=== PATIENT | female | born 1980 | race Two or more races ===

== ENCOUNTER 2017-02-05 05:03 | Inpatient (IN) | payer OTHER ==
[~2017-02-05] VITALS: Ht 185.4 cm; Wt 109.0 kg
[~2017-02-05 05:03] MED LIST: PREN1TAB74
[2017-02-05 06:27] VITALS: BMI 31.7
[2017-02-05 06:28] VITALS: Ht 185.4 cm; Wt 109.0 kg
[2017-02-05 06:30] VITALS: BP 130/77; PULSE 96; RESP 18
[2017-02-05] MEDS ORDERED: OXYTOCIN 30 UNITS/LR 500 ML IV PRN ×2 (07:00→13:00)
[2017-02-05] MEDS ORDERED: METHYLERGONOVINE 0.2 MG INJ IM PRN ×2 (07:00→13:00)
[2017-02-05] MEDS ORDERED: OXYTOCIN 30 UNITS/LR 500 ML IV SCH (07:00)
[2017-02-05] MEDS ORDERED: CEFAZOLIN 2 GM/50 ML (PMX) 50 ML IV SCH (07:00)
[2017-02-05] MEDS ORDERED: CARBOPROST 250 MCG INJ IM PRN ×2 (07:00→13:00)
[2017-02-05] MEDS ORDERED: MISOPROSTOL 200 MCG TAB PR PRN ×2 (07:00→13:00)
[2017-02-05 07:20] LABS: BASOPHILS % 0.4 % (0.0-2.0); EOSINOPHILS % 0.2 % (0.0-7.0); HEMATOCRIT 36.9 % (37.0-47.0); LYMPHOCYTES # 1.7 10^3/ul (0.8-2.9); LYMPHOCYTES % 19.8 % (15.0-51.0); MEAN CORPUSCULAR HEMOGLOBIN 31.3 pg (29.0-33.0); MEAN CORPUSCULAR HGB CONC 35.2 g/dl (32.0-37.0); MEAN CORPUSCULAR VOLUME 88.7 fl (82.0-101.0); MEAN PLATELET VOLUME 11.6 fl (7.4-10.4); MONOCYTE # 0.8 10^3/ul (0.3-0.9); MONOCYTES % 9.5 % (0.0-11.0); NEUTROPHILS % 68.7 % (39.0-77.0); PLATELET COUNT 180 10^3/UL (140-415); RED BLOOD COUNT 4.16 10^6/ul (4.20-5.40); RED CELL DISTRIBUTION WIDTH 14.2 % (11.5-14.5); WHITE BLOOD COUNT 8.5 10^3/ul (4.8-10.8)
[2017-02-05 07:35] LABS: INR 0.87; PARTIAL THROMBOPLASTIN TIME 27.5 Sec (25.0-35.0); PROTIME 11.8 Sec (12.2-14.2); PT RATIO 0.9
[2017-02-05] MEDS: LACTATED RINGER'S 1,000 ML IV SCH ×2 (07:41→08:33)
[2017-02-05] MEDS ORDERED: PHENYLephrine (100 MCG/ML) 5ML SYG ONE (08:52)
[2017-02-05] MEDS ORDERED: EPHEDrine SULFATE 50 MG/5 ML SYG ONE (08:52)
[2017-02-05] MEDS ORDERED: FENTAnyl 50 MCG/ML VIAL ONE (08:52)
[2017-02-05] MEDS ORDERED: morphine SULFATE/PF (10 MG/10 ML) INJ ONE (08:52)
--- NOTE | 2017-02-05 09:09 | HP ---
Date/Time of Note Date/Time of Note DATE: 02/05/17 TIME: 08:54 OB - History Hx of Present Free Text/Dictation 36 years old female 4 para 3 history of one normal delivery 2 previous section admitted to the hospital at 39 weeks gestation for repeat and request for bilateral tubal ligation. This patient has been under the care of [facility] and her not complicated with gestational diabetes or -induced hypertension or any other medical or surgical. [employer] history [place] at age 13 history of 4 including present one normal delivery 2 previous section Allergies denies allergy to any known Social habit denies smoking or drinking, using illicit drug Review of system within normal Physical examination 6 foot 1 235 pounds blood pressure 120/70 pulse 77 respiration 20 temperature 98.6 Head ears nose and throat negative Neck supple no thyromegaly Lungs clear to P&A Heart normal sinus rhythm no murmur Abdomen fundal height 38 cm from symphysis pubis heart rate category 1 Pelvic examination deferred Extremities no varicosities 1+ edema Impression Intrauterine at 39 weeks gestation 2 previous section request for bilateral tubal ligation. Patient has been counseled regarding the complication of the surgery including bowel bladder injury infection wound hematoma and infection, also failure rate of tubal ligation increased risk of ectopic future failure to conceive she would like to proceed with the operation Estimated Due Date: Feb 12, 2017 : 4 Para: 3 Care: Good Care Ultrasounds: Normal mid trimester US Obstetrical Complications: None Past Family/Social History * Past Medical, Surgical, Family and Obstetric Histories reviewed from chart. Rubella: immune RPR/VDRL: Negative GBS Status: Negative HBsAG: Negative OB Admission Exam Vital Signs Vital Signs Vital Signs Date Time Temp Pulse Resp B/P Pulse Ox O2 Delivery O2 Flow Rate FiO2 02/05/17 06:30 99.5 96 18 130/77 100 Room Air Physical Exam HEENT: WNL Heart: Rhythm Normal Lungs: Clear, Equal Abdomen: WNL Extremities: Normal Reflexes: Normal Cervical Dilatation: None Station: -2 Membranes: Intact Heart Rate: 120's Accelerations: Accelerations Present Decelerations: No Decelerations Varibility: Moderate Contractions on Admission: >10 Minutes Apart Intensity: Mild Last 72 hours Lab Results CBC & BMP 02/05/17 07:04 OB Assessment/Plan Reason for admission: other (39 weeks history of 2 previous section request for bilateral tubal ligation) Other Assessment: 36 years old female 4 para 3 history of 2 previous section requesting bilateral tubal ligation at the time of complication of the surgery failure rate of tubal ligation has been discussed with the patient and she would like to proceed with the operation Plan: Repeat bilateral tubal ligation Plan: Section (Repeat bilateral tubal ligation) NOE MENDOZA MD Feb 05, 2017 09:04
[2017-02-05] MEDS ORDERED: DEXAMETHASONE 4 MG/ML 1 ML INJ ONE (09:13)
[2017-02-05] MEDS ORDERED: ONDANSETRON 4 MG INJ ONE (09:13)
[2017-02-05] MEDS ORDERED: NALBUPHINE HCL (10 MG/1 ML) INJ IV PRN (10:00)
[2017-02-05] MEDS ORDERED: NALOXONE (0.4 MG/ML) INJ IV PRN (10:00)
[2017-02-05] MEDS ORDERED: DIPHENHYDRAMINE 50 MG INJ IV PRN (10:00)
[2017-02-05] MEDS ORDERED: HYDROmorphONE 1 MG/ML SYG IV PRN ×2 (10:00)
--- NOTE | 2017-02-05 10:21 | OPR ---
Operative Report Planned Procedure Free Text/Dictation 36 years old female 4 para 3 previous request for bilateral tubal ligation Procedure date Feb 05, 2017 Procedure(s) Repeat bilateral tubal ligation Performed by: NOE MENDOZA MD Assisting provider: JANETT MOJICA MD Anesthesiologist: ULICES HOLT DO Pre-procedure diagnosis History of 2 previous request for bilateral tubal ligation Anesthesia Type: spinal Procedure Description Under satisfactory spinal [] anesthesia, the patient was prepped and draped and placed in a supine position, tilted to the left. Pfannenstiel incision was made , carried through the subcutaneous tissue. Bleeders brought under control with electrocautery. Fascia incised to the length of the incision. Rectus muscles from the fascia, divided midline. Peritoneum exposed, entered through a transverse incision. Exploration of abdomen revealed gravid uterus at term normal-appearing tubes and ovaries extremely thinned out lower segment of the uterus to the thickness of 1 mm, bladder flap was developed. Transverse incision was made in the lower segment of the uterus. Amniotic sac ruptured. Clear [] amniotic fluid noted live baby girl was delivered from unengaged vertex. [] Nasal oropharyngeal suction was performed. baby handed to the team for immediate attention. The placenta was delivered manually intact. Uterine cavity was cleaned with wet sponge and drainage established. Uterus closed in 2 layers using [Monocryl #1] in continuous fashion. Bilateral tubal ligation performed by identifying the ampullar and fimbria of the right fallopian tube grasped by a [place] excised suture material used #0 plain catgut which was reinforced with the same suture material the same procedure performed for the opposite side and both the specimen submitted to the pathology peritoneal cavity irrigated with warm saline. Sponge, needle and instrument count reported to be correct. Abdominal peritoneum closed with [2-0 chromic catgut] continuously. Rectus muscle approximated with several interrupted 2-0 chromic catgut []. Fascia closed with #1 PDS [subcutaneous tissue approximated with several interrupted 2-0 chromic catgut], skin closed with N sorb. Estimated blood loss [600]mL. Urine bag contained 200 []mL of clear urine patient tolerated procedure well transferred to recovery room in good condition Post-Procedure Findings: Live Baby girl 9 and8 Specimen removed: No Pt Condition post procedure: stable Physician Certification I, the undersigned physician, hereby certify that I have discussed the procedure described in this consent form with this patient (or the patient's legal commissary representative), including: * The risk and benefits of the procedure; * Any adverse reactions that may reasonably be expected to occur; * Any alternative efficacious methods of treatment which may be medically viable ; * The potential problems that may occur during recuperation; * Potential for blood transfusion and associated risks/benefits; and * Any research or economic interest I may have regarding this treatment. I further certify that the patient/legally responsible person was encouraged to ask question and that all questions were answered. NOE MENDOZA MD Feb 05, 2017 10:21
[2017-02-05 12:30] VITALS: BP 110/68; PULSE 75; RESP 18
[2017-02-05] MEDS: OXYTOCIN 30 UNITS/LR 500 ML IV SCH ×3 (12:34→22:02)
[2017-02-05 13:00] VITALS: BP 111/66; PULSE 71; RESP 19
[2017-02-05] MEDS ORDERED: OXYCODONE/ACETAMINOPHEN (5/325) TAB PO PRN ×2 (13:00)
[2017-02-05] MEDS ORDERED: CEFAZOLIN 1 GM/50 ML (PMX) 50 ML IVPB SCH (13:00)
[2017-02-05] MEDS ORDERED: LANOLIN 7 GM TUBE TOP PRN (13:00)
[2017-02-05] MEDS ORDERED: HYDROCODONE/APAP (5/325) TAB PO PRN ×2 (13:00)
[2017-02-05] MEDS: KETOROLAC 30 MG INJ IV PRN ×2 (13:58→22:02)
[2017-02-05 14:00] VITALS: BP 108/56; PULSE 67; RESP 19
[2017-02-05 16:00] VITALS: BP 107/55; PULSE 64; RESP 19
[2017-02-05 20:00] VITALS: BP 105/61; PULSE 76; RESP 18
[2017-02-05] MEDS: SENNA/DOCUSATE NA (8.6MG/50MG) TAB PO SCH (21:00)
[2017-02-06] MEDS: OXYTOCIN 30 UNITS/LR 500 ML IV SCH ×3 (02:12→08:34)
[2017-02-06 05:29] VITALS: BP 90/80; PULSE 65; RESP 18
[2017-02-06] MEDS: KETOROLAC 30 MG INJ IV PRN (05:37)
[2017-02-06 07:30] VITALS: BP 107/59; PULSE 68; RESP 19
[2017-02-06 07:49] LABS: BASOPHILS % 0.2 % (0.0-2.0); EOSINOPHILS % 0.3 % (0.0-7.0); HEMATOCRIT 29.9 % (37.0-47.0); HEMOGLOBIN 10.2 g/dl (12.0-16.0); LYMPHOCYTES # 2.4 10^3/ul (0.8-2.9); LYMPHOCYTES % 23.3 % (15.0-51.0); MEAN CORPUSCULAR HEMOGLOBIN 30.6 pg (29.0-33.0); MEAN CORPUSCULAR HGB CONC 34.1 g/dl (32.0-37.0); MEAN CORPUSCULAR VOLUME 89.8 fl (82.0-101.0); MEAN PLATELET VOLUME 12.1 fl (7.4-10.4); MONOCYTE # 1.3 10^3/ul (0.3-0.9); MONOCYTES % 12.8 % (0.0-11.0); NEUTROPHILS % 62.8 % (39.0-77.0); PLATELET COUNT 159 10^3/UL (140-415); RED BLOOD COUNT 3.33 10^6/ul (4.20-5.40); RED CELL DISTRIBUTION WIDTH 14.5 % (11.5-14.5); WHITE BLOOD COUNT 10.4 10^3/ul (4.8-10.8)
[2017-02-06] MEDS: SENNA/DOCUSATE NA (8.6MG/50MG) TAB PO SCH ×2 (09:24→21:41)
--- NOTE | 2017-02-06 09:46 | PN ---
Date/Time of Note Date/Time of Note DATE: 02/06/17 TIME: 09:45 OB Subjective Subjective Subjective Post day 1 Afebrile Vital signs are stable Abdomen soft Bowel sounds present Lochia moderate Extremity normal Ambulation encouraged Laboratory Tests Test 02/06/17 07:03 White Blood Count 10.410^3/ul Red Blood Count 3.3310^6/ul Hemoglobin 10.2g/dl Hematocrit 29.9% Mean Corpuscular Volume 89.8fl Mean Corpuscular Hemoglobin 30.6pg Mean Corpuscular Hemoglobin Concent 34.1g/dl Red Cell Distribution Width 14.5% Platelet Count 97612^3/UL Mean Platelet Volume 12.1fl Neutrophils % 62.8% Lymphocytes % 23.3% Monocytes % 12.8% Eosinophils % 0.3% Basophils % 0.2% Nucleated Red Blood Cells % 0.0/100WBC Neutrophils # (Manual) 710^3/ul Lymphocytes # 2.410^3/ul Monocytes # 1.310^3/ul Eosinophils # 0.010^3/ul Basophils # 0.010^3/ul Nucleated Red Blood Cells # 0.010^3/ul Current Medications Medications (Trade) Dose Ordered Sig/Bre Route PRN Reason Start Time Stop Time Status Last Admin Dose Admin Cefazolin Sodium/ Dextrose 50 ml @ 100 mls/hr ONCE IV 02/05/17 07:00 02/05/17 12:38 DC Oxytocin/Lactated Ringer's 500 ml @ 125 mls/hr ONCE IV 02/05/17 07:00 02/05/17 12:38 DC 02/05/17 11:59 Oxytocin/Lactated Ringer's 500 ml @ 0 mls/hr ONCE PRN IV For Hemorrhage Management 02/05/17 07:00 02/05/17 12:39 DC Methylergonovine Maleate (Methergine) 0.2 mg ONCE PRN IM VAGINAL BLEEDING 02/05/17 07:00 02/05/17 12:39 DC Carboprost Tromethamine (Hemabate) 250 mcg ONCE PRN IM VAGINAL BLEEDING 02/05/17 07:00 02/05/17 12:39 DC Misoprostol 1000 mcg 1,000 mcg ONCE PRN VA VAGINAL BLEEDING 02/05/17 07:00 02/05/17 12:39 DC Lactated Ringer's (Lr) 1,000 ml @ 125 mls/hr Q8H IV 02/05/17 07:34 02/05/17 12:39 DC 02/05/17 08:33 Ephedrine Sulfate 50 mg STK-MED ONCE .ROUTE 02/05/17 08:52 02/05/17 08:53 DC Morphine Sulfate (Duramorph) 10 mg STK-MED ONCE .ROUTE 02/05/17 08:52 02/05/17 08:53 DC Fentanyl (Sublimaze) 100 mcg STK-MED ONCE .ROUTE 02/05/17 08:52 02/05/17 08:53 DC Phenylephrine HCl (Louie-Synephrine Inj Syg) 500 mcg STK-MED ONCE .ROUTE 02/05/17 08:52 02/05/17 08:53 DC Ondansetron HCl (Zofran Inj) 4 mg STK-MED ONCE .ROUTE 02/05/17 09:13 02/05/17 09:14 DC Dexamethasone (Decadron) 4 mg STK-MED ONCE .ROUTE 02/05/17 09:13 02/05/17 09:14 DC Naloxone HCl (Narcan) 0.1 mg Q2M PRN IV FOR RESP RATE 8 OR LESS 02/05/17 10:00 02/06/17 09:59 Ketorolac Tromethamine (Toradol) 30 mg Q6H PRN IV PAIN 02/05/17 10:00 02/06/17 09:59 02/06/17 05:37 Hydromorphone HCl (Dilaudid) 0.2 mg Q3H PRN IV PAIN LEVEL 1-5 02/05/17 10:00 02/06/17 09:59 Hydromorphone HCl (Dilaudid) 0.4 mg Q3H PRN IV PAIN LEVEL 6-10 02/05/17 10:00 02/06/17 09:59 Diphenhydramine HCl (Benadryl) 25 mg Q6H PRN IV ITCHING 02/05/17 10:00 02/06/17 09:59 Nalbuphine HCl (Nubain) 5 mg ONCE PRN IV ITCHING 02/05/17 10:00 02/06/17 09:59 Acetaminophen/ Hydrocodone Bitart ([place] (5/325)) 1 tab Q4H PRN PO PAIN LEVEL 4-6 02/05/17 13:00 Acetaminophen/ Hydrocodone Bitart ([place] (5/325)) 2 tab Q4H PRN PO PAIN LEVEL 7-10 02/05/17 13:00 Oxycodone/ Acetaminophen (Percocet (5/ 325)) 1 tab Q4H PRN PO PAIN LEVEL 4-6 02/05/17 13:00 Oxycodone/ Acetaminophen (Percocet (5/ 325)) 2 tab Q4H PRN PO PAIN LEVEL 7-10 02/05/17 13:00 02/06/17 09:25 Ibuprofen (Motrin) 600 mg Q6 PO 02/06/17 12:00 Simethicone (Mylicon) 160 mg Q8H PRN PO DISTENSION/GAS/BLOATING 02/05/17 13:00 Senna/Docusate Sodium (Senokot-S) 1 tab BID PO 02/05/17 21:00 02/06/17 09:24 Lanolin (Kcv-M-Xbummg) 1 applic BEDSIDE MEDICATION PRN TOP BEDSIDE FOR LASHELL TO NIPPLES 02/05/17 13:00 Diphtheria/ Tetanus/Acell Pertussis 0.5 ml 0.5 ml ONCE ONCE IM* 02/08/17 09:00 02/08/17 09:01 Oxytocin/Lactated Ringer's 500 ml @ 0 mls/hr ONCE PRN IV For Hemorrhage Management 02/05/17 13:00 Methylergonovine Maleate (Methergine) 0.2 mg ONCE PRN IM VAGINAL BLEEDING 02/05/17 13:00 Carboprost Tromethamine (Hemabate) 250 mcg ONCE PRN IM VAGINAL BLEEDING 02/05/17 13:00 Misoprostol 1000 mcg 1,000 mcg ONCE PRN VA VAGINAL BLEEDING 02/05/17 13:00 Cefazolin Sodium 50 ml @ 100 mls/hr ONCE IVPB 02/05/17 13:00 02/05/17 13:29 DC 02/05/17 17:25 Oxytocin/Lactated Ringer's 500 ml @ 125 mls/hr Q4H IV 02/05/17 12:34 02/06/17 02:12 NOE MENDOZA MD Feb 06, 2017 09:45
[2017-02-06 11:53] VITALS: BP 108/61; PULSE 65; RESP 18
[2017-02-06] MEDS: IBUPROFEN 600 MG TAB PO SCH ×3 (11:53→23:32)
[2017-02-06 16:14] VITALS: BP 112/56; PULSE 71; RESP 19
[2017-02-06 19:50] VITALS: BP 130/60; RESP 18
[2017-02-07] MEDS: IBUPROFEN 600 MG TAB PO SCH ×3 (05:41→18:00)
[2017-02-07 07:50] VITALS: BP 127/78; PULSE 67; RESP 20
[2017-02-07] MEDS: SENNA/DOCUSATE NA (8.6MG/50MG) TAB PO SCH ×2 (08:51→21:52)
[2017-02-07 15:52] VITALS: BP 127/74; PULSE 64; RESP 20
[2017-02-07 20:20] VITALS: BP 133/77; PULSE 64; RESP 18
[2017-02-08] MEDS: IBUPROFEN 600 MG TAB PO SCH ×3 (00:38→11:42)
[2017-02-08 04:05] VITALS: BP 127/71; PULSE 74; RESP 18
[2017-02-08 08:10] VITALS: BP 118/83; PULSE 62; RESP 18
[2017-02-08] MEDS ORDERED: DIPHTH/TET/ACEL PERTUSS (ADULT) 0.5 ML VIAL IM* ONE (09:00)
[2017-02-08] MEDS: SENNA/DOCUSATE NA (8.6MG/50MG) TAB PO SCH (09:11)
--- NOTE | 2017-02-08 09:59 | DS ---
Date/Time of Note Date/Time of Note DATE: 02/08/17 TIME: 09:56 Discharge Summary Admission/Discharge Info Admit Date/Time Feb 05, 2017 at 05:03 Discharge Date/Time February 08, 2017 [id number] Discharge Diagnosis Post repeat BTL Patient Condition: Good Procedures Repeat bilateral tubal ligation Hx of Present Illness Term history of previous request for bilateral tubal ligation Hospital Course Satisfactory recovery uneventful Home Meds Reported Medications Vit-Iron Fumarate-FA ( Vitamin Formula) 1 Tab Tablet 03/17/10 Follow-up Plan Post instructions given recommended to make appointment for postop evaluation in 1 week Primary Care Provider Keiko Boland Time spent on discharge: < 30 minutes NOE MENDOZA MD Feb 08, 2017 09:59
== END 2017-02-08 14:47 | disposition home or self-care (01) | DRG 766 ==
LOC: L-D 05:03 → PP1 12:42
PROVIDERS: ADMIT Obstetrics & Gynecology; ATTEND Obstetrics & Gynecology
PROC: 0UL70ZZ Occlusion of Bilateral Fallopian Tubes, Open Approach (ICD-10-PCS; 2017-02-05)
PROC: 10D00Z1 Extraction of Products of Conception, Low, Open Approach (ICD-10-PCS; principal; 2017-02-05 07:30)
DX: O34.211 Maternal care for low transverse scar from previous cesarean delivery (principal); Z30.2 Encounter for sterilization; Z37.0 Single live birth; Z3A.39 39 weeks gestation of pregnancy
CPT/HCPCS: 85025; 85610; 85730; 86592; 86850; 86900; 86901; 88302; 90715; 94760; 99464; J0690; J1100; J1885; J2274; J2370; J2405; J2590; J3010; J7120